=== PATIENT | female | born 1980 | race Caucasian/White ===

== ENCOUNTER 2024-02-08 10:17 | Emergency (ER) | payer OTHER, SELFPAY ==
[2024-02-08 10:23] VITALS: BP 132/81; PULSE 84; TEMP 37.2; O2SAT 100; BMI 22.7
--- NOTE | 2024-02-08 10:30 | XR_ITS ---
The [address] [address] Patient Name: JAMAAL COBURN MRN: [id number] date: 1980 Sex: F Assigned Patient Location: ER Current Patient Location: ED.MAIN Accession/Order Number: [id number] Exam Date: 02/08/2024 10:40 Report Date: 02/08/2024 10:59 At the request of: SUDHEER MORALES Procedure: XR shoulder LT min 2V EXAM: XR shoulder LT min 2V, XR clavicle LT HISTORY: pain no injury COMPARISON: None. TECHNIQUE: 3 views of left shoulder and 2 views of left clavicle FINDINGS: There is no acute fracture or dislocation. The soft tissue is unremarkable. Acromioclavicular joint is unremarkable. XR/XR shoulder LT min 2V IMPRESSION: No acute fracture. Electronically authenticated by: ANOOP DIGGS Date: 02/08/2024 10:59
--- NOTE | 2024-02-08 10:30 | XR_ITS ---
[address] [address] Patient Name: JAMAAL COBURN MRN: [id number] date: 1980 Sex: F Assigned Patient Location: ER Current Patient Location: ED.MAIN Accession/Order Number: [id number] Exam Date: 02/08/2024 10:40 Report Date: 02/08/2024 10:59 At the request of: SUDHEER MORALES Procedure: XR clavicle LT EXAM: XR shoulder LT min 2V, XR clavicle LT HISTORY: pain no injury COMPARISON: None. TECHNIQUE: 3 views of left shoulder and 2 views of left clavicle FINDINGS: There is no acute fracture or dislocation. The soft tissue is unremarkable. Acromioclavicular joint is unremarkable. XR/XR clavicle LT IMPRESSION: No acute fracture. Electronically authenticated by: ANOOP DIGGS Date: 02/08/2024 10:59
--- NOTE | 2024-02-08 10:52 | ED_ITS ---
HPI HPI - General Adult General Chief complaint: Extremity Problem, Nontraumatic Stated complaint: LEFT SHOULDER PAIN Time Seen by Provider: 02/08/24 10:30 Source: patient Mode of arrival: walk-in Limitations: no limitations History of Present Illness HPI narrative: The patient is coming to the ER with a left shoulder pain as well as left neck pain that started almost a couple months ago, thinks that she have some lump around her clavicle to that developed over the last few days, patient denies any trauma or fall Pain is mostly whenever she is trying to put her shirt on Related Data Previous Rx's ?Medication ?Instructions ?Recorded acetaminophen 650 mg 650 mg PO Q8H PRN pain #20 tabs 02/08/24 tablet,extended release (Tylenol 8 Hour) orphenadrine citrate 100 mg 100 mg PO BID muscle spasm #10 tabs 02/08/24 tablet,extended release prednisone 20 mg tablet 40 mg (2 x 20 mg) PO DAILY 5 days 02/08/24 #10 tabs Allergies Allergy/AdvReac Type Severity Reaction Status Date / Time No Known Drug Allergies Allergy Verified 02/08/24 10:28 Opioid HPI Opioid Management Most Recent Opioid Data: No Data to Display Review of Systems ROS Status of ROS 10 or more systems reviewed and unremark able except as noted in history and below PFSH PFSH Social History Little interest or pleasure in doing things: not at all Feeling down, depressed, or hopeless: not at all Exam Narrative Exam Narrative: Nurses notes and vital signs reviewed and patient is not hypoxic. Left upper extremity the patient have full range of movement although she is complaining of pain upon abduction of the left shoulder, I could not appreciate any mass on examination at the patient does have tenderness upon palpation of the medial aspect of the clavicle General: Well-appearing and in no apparent distress. Skin: Warm, dry, no pallor noted. No rash. Head: Normocephalic, atraumatic. Neck: Supple, non-tender. There is left paraspinal muscle tenderness Eye: Pupils are equal, round and EOMI. No scleral icterus. Ears, Nose, Mouth, and Throat: TM are clear, no nasal mucosal hypertrophy. Oral mucosa is moist, no posterior oropharynx erythema, uvula is mid-line Cardiovascular: Regular Rate and Rhythm without murmur, gallop or rub. Respiratory: No accessory muscle use or respiratory distress. Lungs are clear to auscultation, no wheezing, rales or rhonchi Chest Wall: no tenderness Back: No midline thoracic or lumbar vertebral tenderness. No CVA tenderness Musculoskeletal: normal ROM, no calf or popliteal tenderness, no lower extremity edema/swelling GI: Abdomen is soft, non-distended. Normal bowel sounds. No masses appreciated. No tenderness to palpation. No rebound, guarding, or rigidity noted. Neurological: A&O x4. No cranial nerve dysfunction observed. No truncal ataxia. Moves all extremities. Sensation intact. Psychiatric: Cooperative and interactive. Normal mood and affect. Constitutional Vital Signs, click to edit/add: Last Vital Signs Temp 99 F 02/08/24 10:23 Pulse 84 02/08/24 10:23 Resp 16 02/08/24 10:23 BP 132/81 02/08/24 10:23 Pulse Ox 100 02/08/24 10:23 O2 Del Method Room Air 02/08/24 10:23 Course Vital Signs Vital signs: Vital Signs Temperature 99 F 02/08/24 10:23 Pulse Rate 84 02/08/24 10:23 Respiratory Rate 16 02/08/24 10:23 Blood Pressure 132/81 02/08/24 10:23 Pulse Oximetry 100 02/08/24 10:23 Oxygen Delivery Method Room Air 02/08/24 10:23 Temperature 99 F 02/08/24 10:23 Pulse Rate 84 02/08/24 10:23 Respiratory Rate 16 02/08/24 10:23 Blood Pressure 132/81 02/08/24 10:23 Pulse Oximetry 100 02/08/24 10:23 Oxygen Delivery Method Room Air 02/08/24 10:23 Medical Decision Making [facility] Narrative Medical decision making narrative: The patient presentation is concerning mostly for muscle sprain right now the patient had an x-ray of the clavicle as well as x-ray of the left shoulder showing no acute pathology Patient discharged home after she received Toradol in the ER Prednisone Tylenol and Norflex as supportive care The patient is to follow up with primary care physician in next 2-3 days or to return to the emergency department should any of the signs or symptoms worsen or new symptoms develop. The patient agrees with the following Diagnosis and Treatment plan and the patient will be discharged home. Discharge Plan Discharge Chief Complaint: Extremity Problem, Nontraumatic Clinical Impression: Acute shoulder pain Patient Disposition: Home, Self-Care Time of Disposition Decision: 11:21 Condition: Good Prescriptions / Home Meds: New orphenadrine citrate 100 mg tablet extended release 100 mg PO BID Qty: 10 0RF prednisone 20 mg tablet 40 mg PO DAILY 5 Days Qty: 10 0RF acetaminophen [Tylenol 8 Hour] 650 mg tablet extended release 650 mg PO Q8H PRN (Reason: pain) Qty: 20 0RF Print Language: Z[place]ian Instructions: Shoulder Pain (ED) Referrals: Nate Berman DO [Primary Care Provider] - 1 week Darrius Kauffman MD [Physician] - 1 week Discharge Date/Time: 02/08/24 11:34
[2024-02-08] MEDS: KETOROLAC TROMETHAMINE 30 MG/ML VIAL IM (11:02)
== END 2024-02-08 11:34 | disposition home or self-care (01) ==
PROVIDERS: Emergency Provider Emergency Medicine; PCP Family Medicine
DX: M25.512 Pain in left shoulder (principal)
CPT/HCPCS: 73000; 73030; 96372; 99284; J1885